=== PATIENT | male | born 1960 | race Two or more races ===

== ENCOUNTER 2019-02-04 16:00 | Outpatient (AMBR) | payer MEDICARE, MEDICAID, SELFPAY ==
--- NOTE | 2019-01-15 16:16 | PT.ODAYNRPT ---
PT Outpatient Daily Note Date of Service: January 15, 2019 OP Daily Note Visit Reasons: right hand Outpatient Physical Therapy Treatment Date: 01/15/19 Subjective: pt denies any issues to his R hand upon visit. Objective: see flow sheet. Assessment: observed his R hand during ther ex and he has no trouble with the strength as he uses the blue level. he does have more muscle weakness of the wrist extensors and needs to decrease the weight after he does wrist flexion. used both his hands for body blade exercise and he still has trouble with the momentum. he cant keep the momentum going and to compensate. he can roll up the weight with extra weight on it with no trouble nor complaints. Plan: continue POC per PT. Length of Time (minutes) of Treatment: 30 Minutes Office Procedures PT Procedures PT Date of Service: 01/15/19 Therapeutic Exercise 30 minutes: Yes
--- NOTE | 2019-02-04 16:21 | PT.ODS1RPT ---
PT OP Progress/Discharge Note Date of Service: February 04, 2019 Progress Note/DC Note Progress Note/Discharge Note: DC Note Patient Information Pediatric or Adult Patient: Adult PT >13 Visit Reasons: right hand Medical Diagnosis: R fx ulna Service Continue Service or Discharge: Discharge Discharge Date: 02/04/19 Status Subjective: Patient states he is feeling better. He said he is gripping better. He can do a lot of things now and that he is ok not to have any therapy any more. Firm Administrator was used and patient is agreeable to be dc from PT services due to patient states he is feeling good and back to normal and no more limitations for him. Objective: R wrist ROM is WFL R construction project coordinator strength 70lbs and L construction project coordinator strength 80lbs R wrist ms strength 4+/5 Assessment: Patient will be dc from PT services secondary to patient verbalizes he is feeling better. Patient were able to tolerate all the exercise given today. no complain of pain during therapy session. Patient were given HEP to be done at home. Patient's ROM is WFL and no LOM. Patient has no complain of pain for the past days. Plan: Dc from PT services. Treatment Provided This POC: Thera ex Discharge Comment: dc secondary to patient request and patient verbalizes he was at his PLOF. Office Procedures PT Procedures PT Date of Service: 01/15/19 Therapeutic Exercise 30 minutes: Yes PT Procedures PT Date of Service: 02/04/19 Therapeutic Exercise 30 minutes: Yes
== END 2019-02-10 23:59 | disposition home or self-care (01) ==
PROVIDERS: PCP Physician Assistant; Referring Provider Physician Assistant; Visit Provider Physician Assistant
DX: S52.201D Unspecified fracture of shaft of right ulna, subsequent encounter for closed fracture with routine healing (principal); M62.81 Muscle weakness (generalized); M79.641 Pain in right hand; M25.531 Pain in right wrist; W22.8XXD Striking against or struck by other objects, subsequent encounter
CPT/HCPCS: 97110

== ENCOUNTER → 2024-10-28 | Outpatient (CLI) | payer MEDICARE, MEDICAID, SELFPAY ==
[2024-10-28 09:35] LABS: Basophils % (Auto) 1 % (0-2.5); Eosinophils # (Auto) 0.1 Thou/mm3 (0.0-0.5); Eosinophils % (Auto) 3 % (0-10); Hematocrit 39.2 % (41.0-53.0); Hemoglobin 13.8 g/dL (13.5-16.0); Immature Granulocytes % (Auto) 0 % (0-0); Immature Granulocytes Auto 0.01 Thou/mm3 (0.00-0.00); Lymphocytes # (Auto) 0.7 Thou/mm3 (1.0-4.8); Lymphocytes % (Auto) 22 % (10-50); Mean Corpuscular HGB Conc 35.2 g/dl (31.0-37.0); Mean Corpuscular Hemoglobin 29.2 pg (25.0-35.0); Mean Corpuscular Volume 83 fL (80-100); Monocytes # (Auto) 0.3 Thou/mm3 (0.0-0.8); Monocytes % (Auto) 8 % (0-12); Neutrophils # (Auto) 2.2 Thou/mm3 (1.8-7.7); Neutrophils % (Auto) 67 % (37-80); Nucleated Red Blood Cell % 0 /100 WBC (0); Platelet Count 113 Thou/mm3 (140-440); RDW Standard Deviation 39.5 fL (35.1-43.9); Red Blood Count 4.72 Miln/mm3 (4.50-5.90); White Blood Count 3.2 Thou/mm3 (3.8-10.6)
[2024-10-28 10:26] LABS: Alanine Aminotransferase 17 U/L (10-49); Albumin, Serum 3.8 gm/dL (3.4-4.8); Alkaline Phosphatase 68 U/L (46-116); Anion Gap 7 (7-16); Aspartate Amino Transferase 18 U/L (0-34); BUN/Creatinine Ratio 16 Ratio (12-20); Bilirubin,Direct 0.7 mg/dL (0.0-0.3); Bilirubin,Total 2.2 mg/dL (0.3-1.2); Blood Urea Nitrogen 19 mg/dL (9-23); Carbon Dioxide 26.7 mMol/L (20.0-31.0); Cardiac Risk Estimate 2.6 RATIO (4.0-6.7); Chloride 111 mMol/L (98-107); Cholesterol 127 mg/dL (132-200); Creatinine (Component) 1.2 mg/dL (0.6-1.3); Free T4 (Free Thyroxine) 1.46 ng/dL (0.89-1.76); Glucose 107 mg/dL (74-106); HDL Cholesterol 48 mg/dL (40-60); LDL Cholesterol,Calculated 69 mg/dL (0-130); Osmolality,Calculated 290 (275-295); Potassium 4.5 mMol/L (3.4-5.1); Sodium 145 mMol/L (136-145); Thyroid Stimulating Hormone 0.49 uIU/mL (0.55-4.78); Total Protein 6.2 gm/dL (5.7-8.2); Triglycerides 51 mg/dL (30-150); eGFR > 60 See Note
== END | disposition home or self-care (01) ==
PROVIDERS: PCP Family Medicine; Referring Provider Internal Medicine Cardiovascular Disease; Visit Provider Internal Medicine Cardiovascular Disease
DX: I10 Essential (primary) hypertension (principal); E78.5 Hyperlipidemia, unspecified; E07.9 Disorder of thyroid, unspecified
CPT/HCPCS: 36415; 80048; 80061; 80076; 84439; 84443; 85025